=== PATIENT | female | born 1965 | race Caucasian/White ===

== ENCOUNTER 2016-05-31 06:24 | Day surgery (SDC) | payer OTHER ==
[2016-05-08 16:18] LABS: ABSOLUTE BASOPHILS # (AUTO) 0.1 10^3/uL (0.0-0.2); ABSOLUTE EOSINOPHILS # (AUTO) 0.1 10^3/uL (0.0-0.6); BASOPHILS % (AUTO) 0.6 % (0-2); EOSINOPHILS % (AUTO) 0.7 % (0-6); HEMATOCRIT 38.8 % (36.0-47.0); HEMOGLOBIN 13.1 g/dL (12.0-15.5); HGB HCT DIFFERENCE 0.5; LYMPHOCYTES % (AUTO) 24.4 % (13-45); MEAN CORPUSCULAR HEMOGLOBIN 30.6 pg (27.0-33.4); MEAN CORPUSCULAR HGB CONC 33.6 g/dL (32.0-36.0); MEAN CORPUSCULAR VOLUME 91 fl (80-97); MONOCYTES % (AUTO) 8.2 % (3-13); RED BLOOD COUNT 4.26 10^6/uL (3.72-5.28); RED CELL DISTRIBUTION WIDTH 13.3 % (11.5-14.0); SEGMENTED NEUTROPHILS % (AUTO) 66.1 % (42-78); WHITE BLOOD COUNT 12.1 10^3/uL (4.0-10.5)
[2016-05-08 16:23] LABS: APPEARANCE,URINE SLIGHTLY-CLOUDY; BILIRUBIN,URINE NEGATIVE (NEGATIVE); GLUCOSE, URINE NEGATIVE (NEGATIVE); KETONES,URINE NEGATIVE (NEGATIVE); LEUKOCYTE ESTERASE,URINE LARGE (NEGATIVE); NITRITE,URINE NEGATIVE (NEGATIVE); PROTEIN,URINE NEGATIVE (NEGATIVE); URINE SPECIFIC GRAVITY 1.015; UROBILINOGEN,URINE NEGATIVE mg/dL (<2.0)
[~2016-05-31 06:24] MED LIST: CEFAZOLIN 1 GM/D5W RTU 1 GM/50 ML RTUPB IV PRN; RINGERS SOLUTION,LACTATED 1,000 ML IV PRN
[2016-05-31] MEDS ORDERED: ONDANSETRON HCL INJ/PF 4 MG/2 ML SDV ONE (06:35)
[2016-05-31] MEDS ORDERED: FENTANYL CITRATE INJ/PF 100 MCG/2 ML AMPUL ONE (06:35)
[2016-05-31] MEDS ORDERED: MIDAZOLAM 2 MG/2 ML INJ ONE (06:35)
[2016-05-31] MEDS ORDERED: KETOROLAC TROMETHAMINE 60 MG/2 ML SDV ONE (06:35)
[2016-05-31] MEDS ORDERED: PROPOFOL INJ 200 MG/20 ML VIAL IV ONE (06:36)
[2016-05-31] MEDS ORDERED: DEXAMETHASONE SOD PHOS INJ 10 MG/1 ML VIAL ONE (06:36)
[2016-05-31] MEDS ORDERED: LIDOCAINE 2% INJ-PF (20 MG/ML) 10 ML AMPUL ONE (06:37)
[2016-05-31] MEDS ORDERED: EPHEDRINE SULFATE INJ 50 MG/1 ML AMPULE ONE (06:42)
[2016-05-31] MEDS ORDERED: BUPIVACAINE HCL 0.5 % INJ/PF 30 ML SDV ONE (07:14)
[2016-05-31] MEDS ORDERED: LIDOCAINE 2% INJ (20 MG/ML) 20 ML MDV ONE (07:14)
[2016-05-31] MEDS ORDERED: CEFAZOLIN 1 GM/D5W RTU 1 GM/50 ML RTUPB IV ONE (09:43)
--- NOTE | 2016-06-28 16:14 | [facility] OPERATIVE REPORT E ---
[facility] Operative Report NAME: ARLENE GILL AGE: 50Y DATE OF SURGERY: 05/31/2016 ROOM: PREOPERATIVE DIAGNOSIS: HALLUX RIGIDUS LEFT FOOT. POSTOPERATIVE DIAGNOSIS: HALLUX RIGIDUS LEFT FOOT. OPERATION: Arthroplasty of the first metatarsophalangeal joint and hemiimplant utilizing Arthrosurface VF, first metatarsal head. Application of AlloWrap around the denuded bone to prevent adhesions of the first metatarsal left foot. SURGEON: STEVEN LEMA D.P.M. INTRAOPERATIVE FINDINGS: Intraoperative findings indicated exuberant formation of osteophytes around the first metatarsophalangeal joint which has locked the joint completely and did not *------* any range of motion of the hallux. Intraoperative findings were confirmed clinically and radiographically. PROCEDURE: With the patient lying in the dorsal recumbent position, the left foot and leg were prepped and draped in the usual standard sterile orthopedic manner after the local anesthesia was administered which was a total ankle block. After the anesthetic effect was accomplished, the left leg was elevated for approximately 2 minutes' of time and the left ankle pneumatic tourniquet was inflated up to 250 mmHg after the blood was exsanguinated from the left foot. The left leg was brought to the level of the table. A curvilinear incision was placed right over the metatarsophalangeal joint. The initial incision was deepened and the superficial and deep subcutaneous tissues were dissected via sharp and blunt dissection. This dissection was carried until the capsular structures were brought into the surgical field. By this time, all bleeders were ligated and all vital structures were identified and protected from surgical trauma. Next, the capsulotomy was performed which was a capital T capsulotomy with the roof of the capital T capsulotomy being medial and adjacent to extensor hallucis longus tendon and the foot of the capital T capsulotomy was placed right over the joint and ran in a medial inferior direction. Capsular and periosteal structures were dissected of bone and the joint was brought into the surgical field. The destruction of the joint was visualized at this point together with the formation of osteophytes causing the joint to lock and prevented the joint to have any range of motion. At this point, the very elaborate procedure was attempted. With the left hallux plantar flexed, the articular facet of the head of the first metatarsal was visualized and the center defect was established. Using a drill guide, the central defect was encompassed and the drill guide was seated just over the *------*. With the drill guide in opposition, the guide pin was then drilled into the bone. After that, the step-drill was placed over the guide pin and was driven into the proximal shoulder of the step-drill and was flush to the articular surface. After that, the drill hole was tapped until the desired depth rosamaria was reached. At this point, we used a dairy truck driver to place the taper post into the bone and the dairy truck driver was forwarded until it was flush with the cartilage surface and it was central to the defect. The taper post was secured at this point and there was no need to decompress the joint either. With the taper post in its position, it was cleaned from any debris. After that, the trial cap was placed into the taper post to confirm the correct depth of the taper post. The height of the trial cap was flush with the articular cartilage surface. This was very important to avoid the articular component from being placed above the surface of the defect. Next by using a surface reamer which was placed into the taper post over the guide pin and with surface reamer being the proper size, it was used to remove all osteophytes around the first metatarsal head. We used 3.5 mm surface reamer at this point. After that, the dorsal reamer guide was used again by introduction of the taper post to ream the dorsal aspect of the dorsal shaft of the first metatarsal and to create a flatter curvature over the dorsal area of the first metatarsal head. At this point, the preparatory work was completed. The sizer trial was placed into the surface field which also allowed to establish the correct size of the HemiCAP implant. The sizer trial was congruent with the edge of the surrounding articular surface. At this point, the hallux was placed into full range of motion and there was 90 degrees of dorsiflexion of the hallux. At this point using a round drill, all remaining osteophytes and nonessential bone was removed around the first metatarsal head. Also, the osteophytes around the periphery of the base of the proximal phalanx were also removed in order to prevent any limitation of motion of the first metatarsophalangeal joint. The articular component was selected and we used the implant gustafson which was attached to a suction in order to be able to hold the articular component in place. Next, the articular component was placed into the taper post. We used a slight tapping on the implant gustafson to seal the articular component completely and firmly into the taper post. After the satisfactory positioning of the HemiCAP implant, the left ankle pneumatic tourniquet was deflated and circulation to the left foot returned to normal immediately as the normal digital color and temperature became apparent. At this point, the intraoperative x-rays were obtained to document the positioning and alignment of the HemiCAP implant. The hemiimplant was 2.5 x 4.5-mm in size. The taper post was about 15 mm in diameter. Next, the irrigation was performed and after that, the denuded bone was covered by amniotic membrane and we used 2 x 4-cm amniotic piece of membrane. The lining of the denuded bone would prevent adhesion formation into the surgical area around the implant. After that, the capsular structures were repositioned and closed with 2-0 Vicryl using continuous interlock stitch. The subcutaneous tissues from deep to superficial were closed with 3-0 Vicryl using continuous interlock stitch and finally the skin edges were repositioned and closed with 4-0 nylon using continuous interlock stitch as well. Betadine compression dressing was applied around the surgical area, followed with an Godfrey bandage and a surgical shoe. This patient tolerated the procedures well and left the operating room with stable vital signs and in good condition. The patient was taken to the recovery room alert, conscious and oriented. There are no permanent disabilities anticipated at this time. DICTATING PHYSICIAN: STEVEN LEMA D.P.M. [id number] PHY#: [id number] ID: [id number] JOB#: [id number] ACCT: [id number] cc:STEVEN LEMA D.P.M. >
== END 2016-05-31 10:57 | disposition home or self-care (01) ==
LOC: SC 06:24
PROVIDERS: ATTEND Podiatrist Foot & Ankle Surgery
PROC: 0SRN0JZ Replacement of Left Metatarsal-Phalangeal Joint with Synthetic Substitute, Open Approach (ICD-10-PCS; principal; 2016-05-31 07:30)
DX: M20.22 Hallux rigidus, left foot (principal); G43.909 Migraine, unspecified, not intractable, without status migrainosus
CPT/HCPCS: 36415; 85025; 81001; 73660; 28291; J2250; J3490 ×2; J0690; J1885; J3010; J2405; J2704; J1100; 00142